=== PATIENT | female | born 1945 ===

== ENCOUNTER 2016-07-13 12:12 | Emergency (ER) | payer OTHER, MEDICARE | END 2016-07-13 15:30 | disposition left against medical advice (07) | LOC: UCEAST 12:12 | DX: R21 Rash and other nonspecific skin eruption (principal); K57.92 Diverticulitis of intestine, part unspecified, without perforation or abscess without bleeding; Z53.21 Procedure and treatment not carried out due to patient leaving prior to being seen by health care provider ==

== ENCOUNTER 2016-07-14 13:03 | Emergency (ER) | payer MEDICARE, OTHER ==
--- NOTE | 2016-07-14 15:02 | UC ---
General HPI - HPI Summary HPI Summary: complaint of rash on the back of her right leg- started yesterday morning rash is mildly painful took some tylenol with relief pain her LLQ yesterday- put herself on a clear diet yesterday and pain has resolved hx of diverticulitis denies fever and chills denies fatigue has been traveling to [place] from [place] arrived 2 nights ago - History of Current Complaint Chief Complaint: UCRash Stated Complaint: SHINGLES Time Seen by Provider: 07/14/16 15:00 Hx Obtained From: Patient - Allergy/Home Medications Allergies/Adverse Reactions: Allergies Allergy/AdvReac Type Severity Reaction Status Date / Time Penicillins Allergy Difficulty Verified 07/14/16 14:50 Breathing Sulfa Antibiotics Allergy Rash Verified 07/14/16 14:50 Home Medications: Home Medications Brinzolamide 1% OPHTH TIM(NF) [Azopt 1% OPHTH TIM(NF)] 07/14/16 [History] Losartan TAB* [Cozaar TAB*] 07/14/16 [History] PMH/Surg Hx/FS Hx/Imm Hx Previously Healthy: No - diverticultis Cardiovascular History Of: Reports: Hypertension GI/ History Of: Reports: Diverticulitis - Surgical History Surgical History: None - Family History Known Family History: Negative: Cardiac Disease, Hypertension, Diabetes - Social History Occupation: Retired Lives: With Family Alcohol Use: Rare Substance Use Type: None Smoking Status (MU): Never Smoked Tobacco Review of Systems Constitutional: Negative Skin: Rash Eyes: Negative ENT: Negative Respiratory: Negative Cardiovascular: Negative Gastrointestinal: Abdominal Pain Genitourinary: Negative Motor: Negative Neurovascular: Negative Musculoskeletal: Negative Neurological: Negative Psychological: Negative All Other Systems Reviewed And Are Negative: Yes Physical Exam Triage Information Reviewed: Yes Appearance: No Pain Distress, Well-Nourished Vital Signs: Initial Vital Signs Temp 98.9 F 07/14/16 14:52 Pulse 70 07/14/16 14:52 Resp 16 07/14/16 14:52 BP 149/70 07/14/16 14:52 Pulse Ox 97 07/14/16 14:52 Vital Signs Reviewed: Yes Eyes: Positive: Conjunctiva Clear ENT: Positive: Pharynx normal, TMs normal Neck: Positive: No Lymphadenopathy Respiratory: Positive: Lungs clear, Normal breath sounds, No respiratory distress, No accessory muscle use Cardiovascular: Positive: RRR, No Murmur, Pulses Normal Abdomen Description: Positive: Nontender, No Organomegaly, Soft. Negative: CVA Tenderness (R), CVA Tenderness (L) Bowel Sounds: Positive: Present Musculoskeletal: Positive: No Edema Neurological: Positive: Alert Psychological Exam: Normal Skin: Positive: rashes - RLE- back of thigh cluster of vesicular rash on erythematous base 4x6cm area Course/Dx - Course Course Of Treatment: exam completed. will start valtrex for suppression. diverticultitis possible beginning of flare that resolved- d/t non tender abdomen and afebrile will not treat with antibiotics. discussed s/s of when to seek medical care and pt states understanding - Differential Dx - Multi-Symptom Provider Diagnoses: shingles. elevated blood pressure Discharge - Discharge Plan Condition: Stable Disposition: HOME Prescriptions: ValACYclovir (*) [Valtrex 1 GM(*)] 1 gm PO TID #21 tab Patient Education Materials: Shingles (ED), Diverticulitis (ED) Referrals: [facility] [Outside] Additional Instructions: Please take antiviral as directed Increase fluids and rest Take acetaminophen or ibuprofen for fever or pain Please review your discharge instructions. If your symptoms do not improve please call your primary care provider or return to urgent care. Your blood pressure is elevated. Please contact your primary care provider within 1 day -4 weeks for further evaluation.
[2016-07-14 15:26] VITALS: BP 151/81
== END 2016-07-14 15:32 | disposition home or self-care (01) ==
LOC: UCEAST 13:03
DX: B02.9 Zoster without complications (principal); I10 Essential (primary) hypertension; Z88.0 Allergy status to penicillin; Z88.2 Allergy status to sulfonamides
CPT/HCPCS: 99212; G0463